=== PATIENT | female | born 1960 | race Caucasian/White ===

== ENCOUNTER 2022-06-16 12:30 | Outpatient (CLI) | payer BC | END 2022-06-16 12:31 | disposition home or self-care (01) | LOC: BICMAMMO 12:30 | PROVIDERS: ATTEND Obstetrics & Gynecology | DX: N63.11 Unspecified lump in the right breast, upper outer quadrant (principal); N60.01 Solitary cyst of right breast | CPT/HCPCS: 77066; G0279 ==